=== PATIENT | female | born 1980 | race Two or more races ===

== ENCOUNTER 2018-03-28 19:50 | Emergency (ER) | payer MEDICAID ==
[~2018-03-28] VITALS: Ht 154.9 cm; Wt 95.3 kg
[2018-03-28 20:02] VITALS: BP 157/77
== END 2018-03-29 02:15 | disposition left against medical advice (07) ==
LOC: ER 19:50
DX: M25.512 Pain in left shoulder (principal); R03.0 Elevated blood-pressure reading, without diagnosis of hypertension; Z53.21 Procedure and treatment not carried out due to patient leaving prior to being seen by health care provider
CPT/HCPCS: 81025